=== PATIENT | female | born 1970 | race Caucasian/White ===

== ENCOUNTER 2017-10-27 20:24 | Emergency (ER) | payer MEDICAID, OTHER ==
[~2017-10-27] VITALS: Ht 152.4 cm; Wt 68.2 kg
[~2017-10-27 20:24] MED LIST: NOCURR
[2017-10-27] MEDS ORDERED: MELO-107 PO (20:29)
[2017-10-27] MEDS ORDERED: KETOROLAC TROMETHAMINE 30 MG/ML VIAL IM ONE (21:45)
[2017-10-27 22:54] VITALS: BP 132/81
== END 2017-10-27 23:05 | disposition home or self-care (01) ==
LOC: EMS 20:24
DX: M25.551 Pain in right hip (principal); M19.90 Unspecified osteoarthritis, unspecified site
CPT/HCPCS: 73502; 96372; 99284; J1885